=== PATIENT | female | born 1950 | race Caucasian/White ===

== ENCOUNTER 2023-05-03 09:00 | Outpatient (RCR) | payer MEDICARE, SELFPAY | END 2023-08-31 23:59 | disposition home or self-care (01) | PROVIDERS: PCP Family Medicine; Visit Provider Orthopaedic Surgery | DX: M54.16 Radiculopathy, lumbar region (principal); M25.552 Pain in left hip; R26.89 Other abnormalities of gait and mobility; M79.605 Pain in left leg; M54.50 Low back pain, unspecified; Z51.89 Encounter for other specified aftercare | CPT/HCPCS: 97110; 97140; 97162; 97530 ==